=== PATIENT | female | born 1960 | race Caucasian/White ===

== ENCOUNTER 2020-04-08 12:41 | Outpatient (REF) | payer OTHER, SELFPAY ==
--- NOTE | 2020-04-08 13:00 | MR_ITS ---
MRI OF THE BRAIN WITHOUT IV CONTRAST INDICATION: Benign positional vertigo. Migraine. COMPARISON: None available. TECHNIQUE: Multiplanar multisequence MR imaging of the brain was obtained without IV contrast. FINDINGS: There is no hydrocephalus, extra-axial surface collection, or herniation. There is a 7 mm focus of susceptibility signal within the left occipital lobe that may reflect a focus of chronic hemosiderin staining or a small cavernoma. The major flow voids at the skull base are preserved. There is no acute infarct on diffusion-weighted imaging. There is no intracranial hemorrhage on the gradient recalled echo acquisition. The midline structures are normal. The cerebellar tonsils are normally positioned. The cerebellum and brainstem are normal. The craniocervical junction is normal. Osseous marrow signal intensity is homogenous. The visualized soft tissues are unremarkable. Mild mucosal thickening within the left maxillary sinus and throughout the ethmoid air cells bilaterally. MR/MR head/brain wo con IMPRESSION: There is a 7 mm focus of susceptibility signal within the left occipital lobe that may reflect a focus of chronic hemosiderin staining or a small cavernoma. Otherwise unremarkable MRI of the brain.
== END 2020-04-08 12:42 | disposition home or self-care (01) ==
LOC: HO.MRI 12:41
PROVIDERS: Visit Provider Psychiatry & Neurology Neurology
DX: H81.10 Benign paroxysmal vertigo, unspecified ear (principal); G43.909 Migraine, unspecified, not intractable, without status migrainosus
CPT/HCPCS: 70551